=== PATIENT | male | born 1980 | race Caucasian/White ===

== ENCOUNTER 2020-11-03 18:45 | Emergency (ER) | payer OTHER ==
[~2020-11-03] VITALS: Ht 175.3 cm; Wt 114.8 kg
[2020-11-03 19:36] VITALS: BP 165/101
--- NOTE | 2020-11-03 19:44 | NUR ---
TO LOBBY FROM TRIAGE
--- NOTE | 2020-11-03 20:20 | NUR ---
TO BED AMBULATORY
--- NOTE | 2020-11-03 20:20 | NUR ---
PT. IS A 40 Y/O MALE THAT CAME INTO ED WITH C/O OF HEADACHE. PT. STATES THAT HE HAS HIGH BLOOD PRESSURE AND HAS BEEN HAVING A FEVER FOR 9 DAYS NOW. PT. STATED HE HAD A NEGATIVE COVID TEST AND RATES PAIN AT 7/10 ON THE PAIN SCALE AT THIS TIME. DENIES N/V/D; SKIN IS PINK/WARM/DRY; AAOX4 WITH EVEN AND STEADY GAIT; HR EVEN AND REGULAR; VSS; PATIENT POSITIONED FOR COMFORT; HOB ELEVATED; BEDRAILS UP X2; BED DOWN. ER MD MADE AWARE OF PT STATUS. PMH: DENIES ALLERGIES: NKA
[2020-11-03] MEDS ORDERED: KETOROLAC 60 MG/2 ML VIAL IM ONE (21:10)
[2020-11-03] MEDS ORDERED: IBUP-2213 PO (21:45)
[2020-11-03] MEDS ORDERED: ACET-8386 PO (21:45)
[2020-11-03 21:51] VITALS: BP 162/96
--- NOTE | 2020-11-03 21:51 | NUR ---
Patient discharged with v/s stable. Written and verbal after care instructions given and explained. Patient alert, oriented and verbalized understanding of instructions. Ambulatory with steady gait. All questions addressed prior to discharge. ID band removed. Patient advised to follow up with PMD. Rx of HYDROCODONE/ACETAMINOPHEN AND IBUPROFEN given. Patient educated on indication of medication including possible reaction and side effects. Opportunity to ask questions provided and answered.
== END 2020-11-03 21:51 | disposition home or self-care (01) ==
LOC: MED 18:45
DX: R51.9 Headache, unspecified (principal)
CPT/HCPCS: 71045; 96372; 99283; J1885